=== PATIENT | female | born 1995 | race African-American/Black ===

== ENCOUNTER 2019-12-10 21:58 | Inpatient (IN) ==
[2019-12-10] MEDS ORDERED: LACTATED RINGERS 1,000 ML IV PRN (22:20)
[2019-12-10] MEDS ORDERED: MEPERIDINE 50 MG/1 ML VIAL IV PRN (22:20)
[2019-12-10 22:47] LABS: Basophils % 0.4 % (0.0-0.8); Eosinophils # 0.1 10*3/uL (0.0-0.87); Hematocrit 27.8 VOL% (35.7-47.0); Hemoglobin 8.6 GM/DL (12.0-16.0); Immature Granulocytes % 0.7 %; Immature Granulocytes Absolute 0.06 #; Lymphocytes # 1.5 10*3/uL (1.4-4.0); Lymphocytes % 18.7 % (21.3-54.2); Mean Corpuscular HGB Conc 30.9 GM/DL (32-36); Mean Corpuscular Volume 88.8 FL (87-102); Mean Platelet Volume 10.1 FL (9.6-12.0); Monocytes % 5.5 % (1.7-12.7); Neutrophils % 73.7 % (38.7-73.9); Platelet Count 179 T/CUMM (130-400); Red Blood Count 3.13 MC/CUMM (3.8-5.5); Red Cell Distribution Width 12.2 % (9.3-17.3); White Blood Count 8.2 T/CUMM (4-12)
[2019-12-10 22:51] LABS: Apearance,Urine CLEAR (Clear); Bacteria,Urine Occasional /HPF (Few); Bilirubin,Urine Negative (Negative); Blood, Urine Negative (Negative); Glucose,Urine (UA) Negative (Negative); Ketones,Urine Negative (Negative); Mucus,Urine Occasional /LPF (Occasional); Nitrite,Urine Negative (Negative); Protein,Urine Negative; RBC,Urine <1 /HPF (0-4); Squamous Epithelial Cell,Urine Occasional /HPF (0-10); Urine Color Yellow (Yellow); Urine Specific Gravity 1.009 (1.001-1.035); Urine Urobilinogen < 2.0 EU/DL (0.2-1.0); WBC,Urine 2 /HPF (0-6)
[2019-12-10 23:11] LABS: Albumin 2.7 G/DL (3.4-5.0); Bilirubin,Total 0.4 MG/DL (0.2-1.0); Calcium 8.6 MG/DL (8.5-10.1); Osmolality,Calculated 271.7 MOS/KG (273-304); Total Protein 6.4 G/DL (6.4-8.3)
[2019-12-11] MEDS ORDERED: AMPICILLIN INJ 2,000 MG in SODIUM CHLORIDE 0.9% 100 ML IV ONE (02:30)
[2019-12-11] MEDS ORDERED: OXYTOCIN/LR 20 UNIT/1,000 ML BAG IV ONE ×3 (02:30→08:26)
[2019-12-11] MEDS: BUTORPHANOL 2 MG/ML VIAL IV PRN ×2 (02:34→06:14)
[2019-12-11] MEDS: ONDANSETRON 4 MG/2 ML VIAL IV PRN ×2 (02:34→06:14)
[2019-12-11] MEDS ORDERED: AMPICILLIN 2,000 MG VIAL ONE (02:41)
[2019-12-11] MEDS ORDERED: SODIUM CHLORIDE 0.9% 100 ML IV ONE (02:41)
[2019-12-11] MEDS ORDERED: OXYTOCIN/LR 20 UNIT/1,000 ML BAG IV SCH (04:30)
[2019-12-11] MEDS ORDERED: AMPICILLIN INJ 1,000 MG in SODIUM CHLORIDE 0.9% 100 ML IV SCH (06:30)
[2019-12-11] MEDS ORDERED: METHYLERGONOVINE 0.2 MG/1 ML AMP ONE (07:32)
[2019-12-11] MEDS ORDERED: miSOPROStoL 200 MCG TABLET ONE (07:32)
[2019-12-11] MEDS ORDERED: CARBOPROST TROMETHAMINE 250 MCG/ML AMP IM ONE (07:33)
[2019-12-11] MEDS ORDERED: LIDOCAINE 1% 50 ML VIAL ONE ×2 (07:34→08:15)
[2019-12-11] MEDS ORDERED: TRANEXAMIC ACID 1,000 MG/10 ML VIAL ONE (07:34)
[2019-12-11] MEDS ORDERED: ONDANSETRON 4 MG/2 ML VIAL IV PRN (08:26)
[2019-12-11] MEDS ORDERED: BISACODYL 10 MG SUPP RECTAL PRN (08:26)
[2019-12-11] MEDS ORDERED: oxyCODONE/ACETAMINOPHEN 5-325 MG TABLET PO PRN ×2 (08:26)
[2019-12-11] MEDS ORDERED: WITCH HAZEL PADS 100/JAR TOP PRN (08:26)
[2019-12-11] MEDS ORDERED: RHO(D) IMMUNE GLOBULIN 300 MCG SYRINGE IM ONE (08:26)
[2019-12-11] MEDS ORDERED: DIPH/TET/ACEL PERT BOOSTER VACCINE 0.5 ML VIAL IM ONE (08:26)
[2019-12-11] MEDS ORDERED: BENZOCAINE 20%/MENTHOL 0.5% SPRAY 56 GM CAN TOP PRN (08:26)
[2019-12-11] MEDS ORDERED: ACETAMINOPHEN 325 MG TABLET PO PRN (08:26)
[2019-12-11] MEDS ORDERED: MEASLES/MUMPS/RUBELLA VACCINE 0.5 ML VIAL SUBCUT ONE (08:26)
[2019-12-11] MEDS ORDERED: LANOLIN 50% CREAM 0.3 OZ TUBE TOP PRN (08:26)
[2019-12-11] MEDS ORDERED: HYDROCORTISONE 2.5% RECTAL CREAM 30 GM TUBE TOP PRN (08:26)
[2019-12-11 08:43] LABS: Cord Arterial Blood HCO3 27.1 MMOL/L
[2019-12-11 08:44] LABS: Cord Venous Blood HCO3 24.5 MMOL/L; Cord Venous Blood PCO2 45.5 MMHG; Cord Venous Blood PO2 25.3
[2019-12-11] MEDS: DOCUSATE SODIUM 100 MG CAPSULE PO SCH ×2 (12:18→20:55)
[2019-12-11] MEDS: IBUPROFEN 800 MG TABLET PO PRN (15:50)
[2019-12-12 05:59] LABS: Basophils % 0.4 % (0.0-0.8); Eosinophils # 0.1 10*3/uL (0.0-0.87); Eosinophils % 1.3 % (0.00-10.9); Hematocrit 26.9 VOL% (35.7-47.0); Hemoglobin 8.2 GM/DL (12.0-16.0); Immature Granulocytes % 0.9 %; Lymphocytes % 18.1 % (21.3-54.2); Mean Corpuscular HGB Conc 30.5 GM/DL (32-36); Mean Corpuscular Volume 88.8 FL (87-102); Mean Platelet Volume 10.2 FL (9.6-12.0); Monocytes % 5.5 % (1.7-12.7); Neutrophils % 73.8 % (38.7-73.9); Platelet Count 163 T/CUMM (130-400); Red Blood Count 3.03 MC/CUMM (3.8-5.5); Red Cell Distribution Width 12.1 % (9.3-17.3); White Blood Count 10.9 T/CUMM (4-12)
[2019-12-12] MEDS: DOCUSATE SODIUM 100 MG CAPSULE PO SCH ×2 (10:15→20:27)
[2019-12-12] MEDS: IBUPROFEN 800 MG TABLET PO PRN (23:05)
[2019-12-13] MEDS: DOCUSATE SODIUM 100 MG CAPSULE PO SCH (08:43)
[2019-12-13 09:19] VITALS: BP 103/57
== END 2019-12-13 15:30 | disposition home or self-care (01) | DRG 560 ==
LOC: N.LDOUT 21:58 → N.LD 22:20 → N.OB 12-11 11:48
PROVIDERS: ADMIT Specialist; ATTEND Specialist